=== PATIENT | female | born 1985 | race Caucasian/White ===

== ENCOUNTER 2016-11-17 19:33 | Outpatient (CLI) | payer OTHER ==
[~2016-11-17] VITALS: Ht 165.1 cm; Wt 98.6 kg
[~2016-11-17 19:33] MED LIST: DIPH25CA6 PO; NPH10OT RIGHT EAR; PREN1TAB49 PO; PREN1TAB67 PO
[2016-11-17 19:49] VITALS: Ht 165.1 cm; Wt 98.6 kg
[2016-11-17 19:50] VITALS: BP 121/73; PULSE 105; RESP 18
[2016-11-17] MEDS ORDERED: ACETAMINOPHEN 500 MG TAB PO STA (20:06)
[2016-11-17] MEDS ORDERED: LACTATED RINGER'S 1,000 ML IV SCH (20:07)
[2016-11-17 20:34] LABS: ADD SCAN DIFF NO
[2016-11-17 20:37] LABS: ABNORMAL IP MESSAGE 1; BASOPHILS % 0.1 % (0.0-2.0); EOSINOPHILS % 0.4 % (0.0-7.0); HEMATOCRIT 32.7 % (37.0-47.0); HEMOGLOBIN 11.4 g/dl (12.0-16.0); LYMPHOCYTES # 0.6 10^3/ul (0.8-2.9); LYMPHOCYTES % 8.8 % (15.0-51.0); MEAN CORPUSCULAR HEMOGLOBIN 31.3 pg (29.0-33.0); MEAN CORPUSCULAR HGB CONC 34.9 g/dl (32.0-37.0); MEAN CORPUSCULAR VOLUME 89.8 fl (82.0-101.0); MEAN PLATELET VOLUME 10.9 fl (7.4-10.4); MONOCYTE # 0.5 10^3/ul (0.3-0.9); MONOCYTES % 7.4 % (0.0-11.0); NEUTROPHIL # 5.6 10^3/ul (1.6-7.5); NEUTROPHILS % 82.9 % (39.0-77.0); PLATELET COUNT 244 10^3/UL (140-415); RED BLOOD COUNT 3.64 10^6/ul (4.20-5.40); RED CELL DISTRIBUTION WIDTH 13.6 % (11.5-14.5); WHITE BLOOD COUNT 6.7 10^3/ul (4.8-10.8)
[2016-11-17 20:47] LABS: ALBUMIN 3.2 g/dl (3.3-4.9)
[2016-11-17 20:48] LABS: ADD UMIC YES; POTASSIUM 3.4 mmol/L (3.5-5.1); URINE BILIRUBIN (Dip) NEGATIVE (NEGATIVE); URINE BLOOD (Dip) NEGATIVE (NEGATIVE); URINE COLOR LT. YELLOW (YELLOW); URINE GLUCOSE (Dip) NEGATIVE (NEGATIVE); URINE KETONES (Dip) TRACE (NEGATIVE); URINE LEUKOCYTE ESTERASE (Dip) TRACE (NEGATIVE); URINE NITRITE (Dip) NEGATIVE (NEGATIVE); URINE TOTAL PROTEIN (Dip) NEGATIVE (NEGATIVE); URINE UROBILINOGEN (Dip) 0.2 E.U./dL (0.1-1.0)
[2016-11-17 20:50] LABS: BILIRUBIN,INDIRECT 0.1 mg/dl (0-1.1); BILIRUBIN,TOTAL 0.1 mg/dl (0.2-1.3); CREATININE 0.52 mg/dl (0.44-1.00); TOTAL PROTEIN 6.4 g/dl (6.1-8.1)
[2016-11-17 20:51] LABS: CALCIUM 8.2 mg/dl (8.4-10.2)
[2016-11-17 20:57] LABS: SQUAMOUS EPITHELIAL CELL,UR FEW; TRANSITIONAL EPI CELLS,URINE OCCASIONAL
--- NOTE | 2016-11-17 22:58 | QN ---
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 with an IUP @ 23w 6d and c/o a fever, body aches, scratchy throat , and mucousy nasal d/c. No vaginal bleeding. no Leaking. No UC's or pelvic pressure. PMHx: none. PSHx: C/S x 1. POBHx: x 2. C/S x 1. All: sulfa-rash, throat swelling. BP 121/73. T= 100.0. O2 sat 98%. No UC's noted. heart tones in the 160's. WBC 6.7. Hgb 11.4. CMP wnl. U/A negative. After IV hydration and Tylenol 100 mg the pt reports feeling much better and her back pain has improved. A: IUP at 23w 6d. URI. P: D/C IV and D/C home. Gave pt a note to stay home from work tomorrow. JAIME PRITCHETT MD Nov 17, 2016 22:58
--- NOTE | 2016-11-18 00:05 | TRIAGE ---
OB Triage Datetime Report Generated by CPN: 11/18/2016 00:05 Datetime: 11/17/2016 22:00 Stage of : OB Triage Temperature Route: Oral Labor Evaluation Frequency: 0 Monitor Mode: External Pattern: Normal: <= 5 Contractions in 10 Minutes Resting Tone [place]: Relaxed Datetime: 11/17/2016 21:00 Stage of : OB Triage Labor Evaluation Frequency: IRREGULAR Monitor Mode: External Duration (sec)2399: 40 Quality: Mild Pattern: Normal: <= 5 Contractions in 10 Minutes Resting Tone [place]: Relaxed Datetime: 11/17/2016 20:46 EGA: 23.6 Datetime: 11/17/2016 20:00 Labor Evaluation Frequency: IRREGULAR Monitor Mode: External Duration (sec)2399: 30-40 Quality: Mild Pattern: Normal: <= 5 Contractions in 10 Minutes Resting Tone [place]: Relaxed Vaginal Exam Dilatation (cms): 0.0 Effacement (%): 0 Station: -3 Exam By: Haily JOHNSON RN Vaginal Bleeding: None Cervix, Consistency: Firm Cervix, Position: Posterior Datetime: 11/17/2016 19:27 Stage of : OB Triage Heart Rate FHR Baseline Rate: 165 Monitor Mode: External US Datetime: 11/17/2016 19:20 Stage of : OB Triage Assessment Type: Triage Time of Arrival: 11/17/2016 19:16 Arrived By: Ambulatory Arrived From: Home Chief Complaint: FEVER SINCE THIS AM/ BODY ACHES, Movement: Present Rupture of Membranes: Denies Vaginal Bleeding: None Recent Sexual Intercouse: Denies Abdominal Trauma: Not Applicable Patient Complaints: None Additional Patient Complaints: PREVIOUS VAGINAL DELIVERIES X2 / C/S X 1/ HX OF ASTHMA HAS NOT USED INHALER X1 YR (Annotations: Data stored by CPN on behalf of user) Time Provider Notified: 11/17/2016 20:10 Provider Notified: SHREYAS Initial Plan: CALL KAYLA SMITH Maternal Assessment Level of Consciousness: Fully Conscious DTR's/Clonus: DTRs 2+; No Clonus Headache: Denies Blurred Vision: No Respiratory Effort: Unlabored; Regular Rhythm; Equal Expansion Breath Sounds, Left: Clear and Equal Breath Sounds, Right: Clear and Equal Nausea/Vomiting: Denies RUQ Epigastric Pain: Denies Lower Extremities Edema: None Degree: None Upper Extremities Edema: None Degree: None Facial Edema: None Temperature Route: Oral Fall Risk Assessment History of Falling: (0) No Secondary Diagnosis: (0) No Ambulatory Aid: (0) Bedrest/Nurse Assist IV Therapy: (0) No Gait: (0) Normal/Bedrest/Immobile Mental Status: (0) Oriented to Own Ability Fall Score: 0 Fall Risk Score Definition: No Risk: No action required Monitor Mode: External Monitor Mode: External US Pain Assessment Pain Scale: 3 Pain Presence: Intermittent Pain Type: Ache
== END 2016-11-17 22:45 | disposition home or self-care (01) ==
LOC: OBT 19:33 → L-D 19:33 → OBT 22:45
PROVIDERS: ATTEND Obstetrics & Gynecology
DX: O60.02 Preterm labor without delivery, second trimester (principal); Z3A.23 23 weeks gestation of pregnancy
CPT/HCPCS: 80053; 81001; 81003; 85025; 87086; J7120; Z7610; 36415; 96360; 96361; G0463

== ENCOUNTER 2016-12-25 21:20 | Outpatient (CLI) | payer OTHER ==
[~2016-12-25] VITALS: Ht 165.1 cm; Wt 100.6 kg
[2016-12-25 21:39] VITALS: Ht 165.1 cm; Wt 100.6 kg
[2016-12-25 21:40] VITALS: BP 120/65; PULSE 81; RESP 18
[2016-12-25] MEDS ORDERED: LACTATED RINGER'S 1,000 ML IV SCH (22:15)
[2016-12-25] MEDS ORDERED: TERBUTALINE 1 MG/ML INJ SC ONE (22:30)
[2016-12-25] MEDS ORDERED: POTASSIUM CHLORIDE 30 MEQ in SOD CHLORIDE 0.45% 1,000 ML IV SCH (22:30)
[2016-12-25 23:08] LABS: ADD SCAN DIFF NO
[2016-12-25 23:13] LABS: BASOPHILS % 0.3 % (0.0-2.0); EOSINOPHILS # 0.2 10^3/ul (0.0-0.5); EOSINOPHILS % 1.8 % (0.0-7.0); HEMATOCRIT 30.5 % (37.0-47.0); HEMOGLOBIN 10.3 g/dl (12.0-16.0); LYMPHOCYTES # 3.3 10^3/ul (0.8-2.9); LYMPHOCYTES % 26.7 % (15.0-51.0); MEAN CORPUSCULAR HEMOGLOBIN 30.9 pg (29.0-33.0); MEAN CORPUSCULAR HGB CONC 33.8 g/dl (32.0-37.0); MEAN CORPUSCULAR VOLUME 91.6 fl (82.0-101.0); MEAN PLATELET VOLUME 11.3 fl (7.4-10.4); MONOCYTE # 0.6 10^3/ul (0.3-0.9); MONOCYTES % 5.2 % (0.0-11.0); NEUTROPHILS % 65.3 % (39.0-77.0); PLATELET COUNT 249 10^3/UL (140-415); RED BLOOD COUNT 3.33 10^6/ul (4.20-5.40); RED CELL DISTRIBUTION WIDTH 14.3 % (11.5-14.5); WHITE BLOOD COUNT 12.2 10^3/ul (4.8-10.8)
[2016-12-25 23:21] LABS: ADD UMIC YES; UR BILIRUBIN (Dip) NEGATIVE (NEGATIVE); UR BLOOD (Dip) NEGATIVE (NEGATIVE); UR COLOR LT. YELLOW (YELLOW); UR GLUCOSE (Dip) NEGATIVE (NEGATIVE); UR KETONES (Dip) NEGATIVE (NEGATIVE); UR LEUKOCYTE ESTERASE (Dip) 3+ (NEGATIVE); UR NITRITE (Dip) NEGATIVE (NEGATIVE); UR TOTAL PROTEIN (Dip) NEGATIVE (NEGATIVE); UR UROBILINOGEN (Dip) 0.2 E.U./dL (0.1-1.0)
[2016-12-25 23:22] LABS: UR CLARITY HAZY (CLEAR)
[2016-12-25 23:45] LABS: UR BACTERIA MODERATE; UR SQUAMOUS EPITHELIAL CELL MANY; URINE RBCS 0-2 /HPF (0)
--- NOTE | 2016-12-26 | RADRPT ---
PROCEDURE: Obstetrical ultrasound greater than 14 weeks CLINICAL INDICATION: Abdominal pain TECHNIQUE: Real time sonographic imaging of the gravid uterus is performed transabdominally and mu ltiple static razo scale and Doppler images are submitted for review as are measurements. The image s are reviewed on the PACS. COMPARISON: No relevant exams are available FINDINGS: The cervical os is closed with a normal cervical length of 3.44 cm. There is a single living intrauterine gestation in breech presentation. The heart beat is est imated at 144 bpm. The measurements are as follows: BPD:7.08 cm HC:26.16 cm AC:24.65 cm FL:5.44 cm Estimated gestational age is 28 weeks 4 days. The estimated date of delivery is 03/15/2017. The estimated weight [id number] grams. Placenta is posterior and grade 1. There is no evidence of placenta previa or abruption. The amniotic fluid index is qualitatively normal RPTAT:HJJR IMPRESSION: 1. Single viable intrauterine gestation in breech presentation estimated at 28 weeks 4 days with the estimated date of delivery 03/15/2017. 2. Posterior grade 1 placenta without placenta previa or abruption. 3. Normal cervical length of 3.4 cm. Physician Luiz Date Time Electronically viewed and signed by Physician Luiz on 12/26/2016 00:00 /
[2016-12-26 00:50] LABS: ADD UMIC NO; UR BILIRUBIN (Dip) NEGATIVE (NEGATIVE); UR BLOOD (Dip) NEGATIVE (NEGATIVE); UR CLARITY CLEAR (CLEAR); UR COLOR LT. YELLOW (YELLOW); UR GLUCOSE (Dip) NEGATIVE (NEGATIVE); UR KETONES (Dip) 15 (NEGATIVE); UR LEUKOCYTE ESTERASE (Dip) NEGATIVE (NEGATIVE); UR NITRITE (Dip) NEGATIVE (NEGATIVE); UR TOTAL PROTEIN (Dip) NEGATIVE (NEGATIVE); UR UROBILINOGEN (Dip) 0.2 E.U./dL (0.1-1.0)
--- NOTE | 2016-12-26 01:02 | HP ---
Date/Time of Note Date/Time of Note DATE: 12/26/16 TIME: 00:55 OB - History Hx of Present Free Text/Dictation OB Triage Pt is a 31yo at 28+4 presenting with c/o painful contractions and abdominal pain starting at 1500. Pt reports normal FM, denies LOF or VB. Pt denies dysuria as well. Pt has hx of FT deliveries x4, although had contractions and was hospitalized for PTL with her second . PROCEDURE: Obstetrical ultrasound greater than 14 weeks CLINICAL INDICATION: Abdominal pain TECHNIQUE: Real time sonographic imaging of the gravid uterus is performed transabdominally and multiple static razo scale and Doppler images are submitted for review as are measurements. The images are reviewed on the PACS. COMPARISON: No relevant exams are available FINDINGS: The cervical os is closed with a normal cervical length of 3.44 cm. There is a single living intrauterine gestation in breech presentation. The heart beat is estimated at 144 bpm. The measurements are as follows: BPD: 7.08 cm HC: 26.16 cm AC: 24.65 cm FL: 5.44 cm Estimated gestational age is 28 weeks 4 days. The estimated date of delivery is 03/15/2017. The estimated weight [id number] grams. Placenta is posterior and grade 1. There is no evidence of placenta previa or abruption. The amniotic fluid index is qualitatively normal RPTAT:HJJR IMPRESSION: 1. Single viable intrauterine gestation in breech presentation estimated at 28 weeks 4 days with the estimated date of delivery 03/15/2017. 2. Posterior grade 1 placenta without placenta previa or abruption. 3. Normal cervical length of 3.4 cm. Estimated Due Date: Mar 15, 2017 : 6 Para: 4 Care: Good Care OB Admission Exam Vital Signs Vital Signs Vital Signs Date Time Temp Pulse Resp B/P Pulse Ox O2 Delivery O2 Flow Rate FiO2 12/25/16 21:40 98.3 81 18 120/65 Room Air NST: Reactive [place]: 6 UCs in first 50 min of triage visit. Following 2hrs acontractile Last 72 hours Lab Results CBC & BMP 12/25/16 20:46 OB Assessment/Plan Other Assessment: Contractions w/o evidence of PTL Reassuring Status Other plan: Pt appropriate for d/c home given low likelihood of PTL in the setting of resolved UCs w/IV hydration even before Terbutaline was administered (given per primary OB orders), TVCL >3cm and negative FFN. Pt given strict return precautions for PTL, PPROM and decreased FM. Encourage f/up as scheduled with primary OB in 2wks, sooner in OB triage as needed. Questions answered to patient's satisfaction. AMANDEEP ROSENBAUM MD Dec 26, 2016 01:02
--- NOTE | 2016-12-26 01:50 | TRIAGE ---
OB Triage Datetime Report Generated by CPN: 12/26/2016 01:49 Datetime: 12/26/2016 01:00 Stage of : OB Triage Datetime: 12/26/2016 00:55 Stage of : OB Triage Datetime: 12/26/2016 00:30 Labor Evaluation Frequency: 0 Monitor Mode: External Heart Rate FHR Baseline Rate: 145 Monitor Mode: External US FHR Baseline Changes: No Baseline Change Variability: Moderate 6-25 bpm Accelerations: 15X15 Decelerations: None Category: Category I Datetime: 12/25/2016 23:30 Labor Evaluation Frequency: 1/HR Monitor Mode: External Duration (sec)2399: 70 Quality: Mild Pattern: Normal: <= 5 Contractions in 10 Minutes Resting Tone [place]: Relaxed Heart Rate FHR Baseline Rate: 135 FHR Baseline Changes: No Baseline Change Variability: Moderate 6-25 bpm Accelerations: 15X15 Decelerations: None Category: Category I Datetime: 12/25/2016 22:49 Vaginal Exam Dilatation (cms): 2.0 Effacement (%): 30 Station: -2 Exam By: DIONISIO BURGOS Vaginal Bleeding: None Cervix, Consistency: Firm Cervix, Position: Posterior Datetime: 12/25/2016 22:43 Stage of : OB Triage Datetime: 12/25/2016 22:30 Labor Evaluation Frequency: 6-7 Monitor Mode: External Duration (sec)2399: 60 Quality: Mild Pattern: Normal: <= 5 Contractions in 10 Minutes Resting Tone [place]: Relaxed Heart Rate FHR Baseline Rate: 135 Monitor Mode: External US FHR Baseline Changes: No Baseline Change Variability: Moderate 6-25 bpm Accelerations: 15X15 Decelerations: None Category: Category I Datetime: 12/25/2016 21:34 Stage of : OB Triage Assessment Type: Triage Time of Arrival: 12/26/2016 21:15 EGA: 29.3 Arrived By: Wheelchair Arrived From: Home Chief Complaint: CRAMPS, PRESSURE Movement: Present Contractions: Irregular Time Contractions Began: 12/25/2016 15:00 Rupture of Membranes: Denies Vaginal Bleeding: None Vaginal Discharge: Denies Recent Sexual Intercouse: Denies Abdominal Trauma: Not Applicable Patient Complaints: None Time Provider Notified: 12/26/2016 22:11 Provider Notified: ABUSLEME Initial Plan: CALL KAYLA SMITH Maternal Assessment Level of Consciousness: Fully Conscious DTR's/Clonus: DTRs 2+; No Clonus Headache: Denies Blurred Vision: No Respiratory Effort: Unlabored; Regular Rhythm; Equal Expansion Breath Sounds, Left: Clear and Equal Breath Sounds, Right: Clear and Equal Nausea/Vomiting: Denies RUQ Epigastric Pain: Denies Lower Extremities Edema: Bilateral Lower Extremities Degree: 1+ Upper Extremities Edema: None Degree: None Facial Edema: None Temperature Route: Oral Fall Risk Assessment History of Falling: (0) No Secondary Diagnosis: (0) No Ambulatory Aid: (0) Bedrest/Nurse Assist IV Therapy: (0) No Gait: (0) Normal/Bedrest/Immobile Mental Status: (0) Oriented to Own Ability Fall Score: 0 Fall Risk Score Definition: No Risk: No action required Monitor Mode: External Monitor Mode: External US Pain Assessment Pain Scale: 4 Pain Presence: Intermittent Pain Type: Contraction Pain Location: Abdomen; Back Datetime: 11/17/2016 20:46 EGA: 23.6 Datetime: 11/17/2016 19:20 Fall Score: 0 Fall Risk Score Definition: No Risk: No action required
[2016-12-26] MEDS ORDERED: LACTATED RINGER'S 1,000 ML IV SCH (22:15)
== END 2016-12-26 01:10 | disposition home or self-care (01) ==
LOC: OBT 21:20 → L-D 21:20 → OBT 12-26 01:10
PROVIDERS: ATTEND Obstetrics & Gynecology
DX: O62.9 Abnormality of forces of labor, unspecified (principal); O26.893 Other specified pregnancy related conditions, third trimester; R10.9 Unspecified abdominal pain; Z3A.28 28 weeks gestation of pregnancy
CPT/HCPCS: 36415; 76815; 76817; 81001; 81003; 82731; 85025; 87086; 96360; 96361; J3105; J7120; Z7500; A4310; G0463

== ENCOUNTER 2017-03-01 22:38 | Outpatient (CLI) | payer OTHER ==
[~2017-03-01] VITALS: Ht 165.1 cm; Wt 103.8 kg
[~2017-03-01 22:38] MED LIST changes: -DIPH25CA6 PO; -NPH10OT RIGHT EAR; -PREN1TAB67 PO
[2017-03-01 23:27] VITALS: Ht 165.1 cm; Wt 103.8 kg
[2017-03-01 23:29] VITALS: BP 118/73; PULSE 84; RESP 18
--- NOTE | 2017-03-02 02:17 | PN ---
Triage Information Date/Time Weeks of Gestation 38+wks GA : 6 Para: 3 Hypertention: none Objective Vital Signs Date Time Temp Pulse Resp B/P Pulse Ox O2 Delivery O2 Flow Rate FiO2 03/01/17 23:29 98.3 84 18 118/73 Room Air Heart Rate: 140's Contractions: None Exam Cxclosed NST reassuring [place] No CTXs Assessment/Plan Discharged with precautions Return to hospital in 2 days patient's questions answered JOSE ANTONIO KIRK M.D. Mar 02, 2017 02:17
--- NOTE | 2017-03-02 03:10 | TRIAGE ---
OB Triage Datetime Report Generated by CPN: 03/02/2017 03:09 Datetime: 03/02/2017 01:40 Labor Evaluation Frequency: 2-5 Monitor Mode: External Duration (sec)2399: 80 Quality: Mild Pattern: Normal: <= 5 Contractions in 10 Minutes Resting Tone [place]: Relaxed Heart Rate FHR Baseline Rate: 125 Monitor Mode: External US FHR Baseline Changes: No Baseline Change Variability: Moderate 6-25 bpm Accelerations: 15X15 Decelerations: None Category: Category I Datetime: 03/02/2017 00:47 Labor Evaluation Frequency: 0 Monitor Mode: External Quality: Mild Pattern: Normal: <= 5 Contractions in 10 Minutes Resting Tone [place]: Relaxed Heart Rate FHR Baseline Rate: 135 Monitor Mode: External US FHR Baseline Changes: No Baseline Change Variability: Moderate 6-25 bpm Accelerations: 15X15 Decelerations: None Category: Category I Datetime: 03/02/2017 00:00 Labor Evaluation Frequency: 2/HR Monitor Mode: External Heart Rate FHR Baseline Rate: 135 Monitor Mode: External US FHR Baseline Changes: No Baseline Change Variability: Moderate 6-25 bpm Accelerations: 15X15 Decelerations: None Category: Category I Datetime: 03/01/2017 23:39 Vaginal Exam Membrane Status: Intact Datetime: 03/01/2017 23:22 Stage of : OB Triage Assessment Type: Triage Time of Arrival: 03/01/2017 22:36 EGA: 38.0 Arrived By: Wheelchair Arrived From: Home Chief Complaint: NST Movement: Present Contractions: Denies/Absent Rupture of Membranes: Denies Vaginal Bleeding: None Vaginal Discharge: Denies Recent Sexual Intercouse: Denies Abdominal Trauma: Not Applicable Patient Complaints: None (Annotations: Data stored by CPN on behalf of user) Time Provider Notified: 03/01/2017 22:40 Provider Notified: DR KIRK Initial Plan: CALL MD [facility] Maternal Assessment Level of Consciousness: Fully Conscious DTR's/Clonus: DTRs 2+; No Clonus Headache: Denies Blurred Vision: No Respiratory Effort: Unlabored; Regular Rhythm; Equal Expansion Breath Sounds, Left: Clear and Equal Breath Sounds, Right: Clear and Equal Nausea/Vomiting: Denies RUQ Epigastric Pain: Denies Lower Extremities Edema: Bilateral Lower Extremities Degree: 1+ Upper Extremities Edema: None Degree: None Facial Edema: None Temperature Route: Oral Fall Risk Assessment History of Falling: (0) No Secondary Diagnosis: (0) No Ambulatory Aid: (0) Bedrest/Nurse Assist IV Therapy: (0) No Gait: (0) Normal/Bedrest/Immobile Mental Status: (0) Oriented to Own Ability Fall Score: 0 Fall Risk Score Definition: No Risk: No action required Monitor Mode: External Monitor Mode: External US Pain Assessment Pain Scale: 0 Datetime: 12/25/2016 21:34 EGA: 28.5 Fall Score: 0 Fall Risk Score Definition: No Risk: No action required Datetime: 11/17/2016 20:46 EGA: 23.1 Datetime: 11/17/2016 19:20 Fall Score: 0 Fall Risk Score Definition: No Risk: No action required
--- NOTE | 2017-03-02 09:10 | RADRPT ---
PROCEDURE: OB ultrasound for biophysical profile CLINICAL INDICATION: Pain. TECHNIQUE: Multiple sonographic images of the gravid uterus performed. The images were reviewed on a PACS workstation. COMPARISON: 01/15/2017 FINDINGS: A single live intrauterine is identified with heart rate of 131 bpm. Fet us is in a cephalic presentation. Placenta is located posteriorly. Biophysical profile: breathing movement = 2/2 tone = 2/2 motion = 2/2 TONY = 2/2 TONY = 21.1 cm. IMPRESSION: 1. Single live intrauterine gestation. 2. Biophysical profile = 8/8. 3. TONY = 21.1 cm, slightly increased from 17.6 cm on 01/15/2017. RPTAT: HMVK .Mj Castillo MD, MD Date Time Electronically viewed and signed by .Mj Castillo MD, on 03/02/2017 00:28 .K/
== END 2017-03-02 02:08 | disposition home or self-care (01) ==
LOC: OBT 22:38 → L-D 22:38 → OBT 03-02 02:08
PROVIDERS: ATTEND Obstetrics & Gynecology
DX: O26.893 Other specified pregnancy related conditions, third trimester (principal); R10.2 Pelvic and perineal pain; Z3A.38 38 weeks gestation of pregnancy
CPT/HCPCS: 76818

== ENCOUNTER 2017-03-10 08:45 | Inpatient (IN) | payer OTHER ==
[~2017-03-10] VITALS: Ht 165.1 cm; Wt 105.5 kg
[~2017-03-10 08:45] MED LIST changes: +EPHEDrine SULFATE 50 MG/5 ML SYG ONE; +OXYTOCIN 30 UNITS/LR 500 ML BAG IV ONE
[2017-03-10] MEDS ORDERED: METHYLERGONOVINE 0.2 MG INJ IM PRN ×2 (09:00→11:00)
[2017-03-10] MEDS ORDERED: MISOPROSTOL 200 MCG TAB PR PRN ×2 (09:00→11:00)
[2017-03-10] MEDS ORDERED: CEFAZOLIN 2 GM/50 ML (PMX) 50 ML IV SCH (09:00)
[2017-03-10] MEDS ORDERED: OXYTOCIN 30 UNITS/LR 500 ML IV PRN ×2 (09:00→11:00)
[2017-03-10] MEDS ORDERED: OXYTOCIN 30 UNITS/LR 500 ML IV SCH (09:00)
[2017-03-10] MEDS ORDERED: CARBOPROST 250 MCG INJ IM PRN ×2 (09:00→11:00)
[2017-03-10 09:16] VITALS: Ht 165.1 cm; Wt 105.5 kg
[2017-03-10] MEDS: LACTATED RINGER'S 1,000 ML IV SCH ×4 (09:31→22:12)
[2017-03-10 09:51] LABS: ADD SCAN DIFF NO
[2017-03-10 09:56] LABS: BASOPHILS % 0.3 % (0.0-2.0); EOSINOPHILS # 0.1 10^3/ul (0.0-0.5); EOSINOPHILS % 0.7 % (0.0-7.0); HEMATOCRIT 32.6 % (37.0-47.0); HEMOGLOBIN 10.6 g/dl (12.0-16.0); LYMPHOCYTES # 1.7 10^3/ul (0.8-2.9); LYMPHOCYTES % 19.6 % (15.0-51.0); MEAN CORPUSCULAR HEMOGLOBIN 28.6 pg (29.0-33.0); MEAN CORPUSCULAR HGB CONC 32.5 g/dl (32.0-37.0); MEAN CORPUSCULAR VOLUME 87.9 fl (82.0-101.0); MEAN PLATELET VOLUME 10.9 fl (7.4-10.4); MONOCYTE # 0.4 10^3/ul (0.3-0.9); MONOCYTES % 4.8 % (0.0-11.0); NEUTROPHIL # 6.4 10^3/ul (1.6-7.5); PLATELET COUNT 275 10^3/UL (140-415); RED BLOOD COUNT 3.71 10^6/ul (4.20-5.40); RED CELL DISTRIBUTION WIDTH 14.3 % (11.5-14.5); WHITE BLOOD COUNT 8.7 10^3/ul (4.8-10.8)
[2017-03-10 10:13] LABS: ALBUMIN 3.7 g/dl (3.3-4.9); ALBUMIN/GLOBULIN RATIO 1.15; BILIRUBIN,INDIRECT 0.2 mg/dl (0-1.1); BILIRUBIN,TOTAL 0.2 mg/dl (0.2-1.3); CALCIUM 8.2 mg/dl (8.4-10.2); CREATININE 0.7 mg/dl (0.44-1.00); INR 0.94; POTASSIUM 3.6 mmol/L (3.5-5.1); PROTIME 12.6 Sec (12.2-14.2); TOTAL PROTEIN 6.9 g/dl (6.1-8.1); URIC ACID 4.1 mg/dl (3.1-7.9)
[2017-03-10] MEDS ORDERED: CITRIC ACID/NA CITRATE 30 ML CUP ONE (10:38)
[2017-03-10] MEDS ORDERED: ONDANSETRON 4 MG INJ ONE ×2 (10:38→11:21)
[2017-03-10] MEDS ORDERED: morphine SULFATE/PF (10 MG/10 ML) INJ ONE (10:51)
[2017-03-10] MEDS ORDERED: PHENYLephrine (100 MCG/ML) 5ML SYG ONE (10:52)
--- NOTE | 2017-03-10 10:54 | HP ---
Date/Time of Note Date/Time of Note DATE: 03/10/17 TIME: 10:48 OB - History Hx of Present Free Text/Dictation This patient is admitted for repeat and tubal ligation her past history is noncontributory she had 2 previous vaginal deliveries and one previous sections and she is requesting a tubal ligation and a repeat C -section Last Menstrual Period: Jun 20, 2017 Estimated Due Date: Mar 15, 2017 : 6 Para: 3 Therapeutic : 2 Care: Good Care Ultrasounds: Normal mid trimester US Obstetrical Complications: None Medical Complications: None Past Family/Social History * Past Medical, Surgical, Family and Obstetric Histories reviewed from chart. Blood Type: A+ Rubella: immune RPR/VDRL: Negative GBS Status: Negative HBsAG: Negative OB Admission Exam Physical Exam HEENT: WNL Heart: Rhythm Normal Lungs: Clear, Equal Abdomen: WNL Extremities: Normal Reflexes: Normal Cervical Dilatation: None Effacement: 25% Station: Ballotable Membranes: Intact Heart Rate: 120's Varibility: Marked Contractions on Admission: None Last 72 hours Lab Results CBC & BMP 03/10/17 09:40 Liver Function Test 03/10/17 09:40 Alanine Aminotransferase (ALT/SGPT) 20 Albumin 3.7 Alkaline Phosphatase 114 Aspartate Amino Transf (AST/SGOT) 13 L Direct Bilirubin 0.00 Total Protein 6.9 TEA DOE MD Mar 10, 2017 10:54
[2017-03-10] MEDS ORDERED: LANOLIN 7 GM TUBE TOP PRN (11:00)
[2017-03-10] MEDS ORDERED: NA PHOSPHATE/BIPHOS 133 ML ENEMA PR PRN (11:00)
[2017-03-10] MEDS ORDERED: METHYLERGONOVINE 0.2 MG TAB PO PRN (11:00)
[2017-03-10] MEDS ORDERED: ACETAMINOPHEN/CODEINE #3 TAB PO PRN (11:00)
[2017-03-10] MEDS: CEFAZOLIN 2 GM/50 ML (PMX) 50 ML IV SCH ×2 (11:05→18:25)
[2017-03-10 11:27] LABS: ADD UMIC YES; UR ASCORBIC ACID NEGATIVE (NEGATIVE); UR BACTERIA FEW /HPF (NONE SEEN); UR BILIRUBIN (Dip) NEGATIVE (NEGATIVE); UR BLOOD (Dip) NEGATIVE (NEGATIVE); UR CLARITY CLOUDY (CLEAR); UR COLOR YELLOW (YELLOW); UR GLUCOSE (Dip) NEGATIVE (NEGATIVE); UR KETONES (Dip) TRACE mg/dL (NEGATIVE); UR LEUKOCYTE ESTERASE (Dip) 3+ Leu/ul (NEGATIVE); UR MUCUS MANY /HPF (NONE SEEN); UR NITRITE (Dip) NEGATIVE (NEGATIVE); UR RBC 6 /HPF (0-5); UR SPECIFIC GRAVITY (Dip) 1.021 (1.003-1.030); UR SQUAMOUS EPITHELIAL CELL MANY /HPF (FEW); UR TOTAL PROTEIN (Dip) 1+ mg/dl (NEGATIVE); UR UROBILINOGEN (Dip) NEGATIVE (NEGATIVE)
[2017-03-10] MEDS ORDERED: DIPHENHYDRAMINE 50 MG INJ IV PRN ×2 (11:30)
[2017-03-10] MEDS ORDERED: ONDANSETRON 4 MG INJ IV PRN ×2 (11:30)
[2017-03-10] MEDS ORDERED: NALOXONE (0.4 MG/ML) INJ IV PRN (11:30)
[2017-03-10] MEDS ORDERED: PROCHLORPERAZINE 10 MG INJ IV PRN (11:30)
[2017-03-10] MEDS ORDERED: FENTAnyl 50 MCG/ML VIAL IV PRN ×2 (11:30)
[2017-03-10] MEDS ORDERED: MEPERIDINE 25 MG INJ IV PRN (11:30)
[2017-03-10] MEDS ORDERED: HYDROmorphONE 1 MG/ML SYG IV PRN (11:30)
[2017-03-10] MEDS ORDERED: METOCLOPRAMIDE 10 MG INJ IV PRN (11:30)
[2017-03-10] MEDS ORDERED: ZOLPIDEM 5 MG TAB PO PRN (11:30)
[2017-03-10] MEDS ORDERED: HYDROmorphONE (0.2 MG/ML) 10ML SYG IV PRN ×3 (11:30)
--- NOTE | 2017-03-10 12:33 | OPR ---
Date/Time of Note Date/Time of Note DATE: 03/10/17 TIME: 12:18 Operative Report Free Text/Dictation Procedure: The patient was placed in the supine position and the abdomen was prepped and draped. and a Roque catheter had been placed in the bladder, a small incision was placed on the previous old scar for about 10 cm and the abdomen was opened in layers without difficulties, the abdominal cavity was reached, the lower uterine segment was identified and the bladder flap was made, the uterus was opened in the midline with the scalpel and the amniotic fluid was clear, the uterus was opened laterally on either side for about 3 inches, the baby's head was large and with the help of the vacuum the baby was delivered with 9, the cord had been clamped and cut and the baby was handed over to the alarm mechanism adjuster team, the cord blood was obtained and the placenta was removed, the uterus was swabbed out and closed in 2 layers using #1 Monocryl continuous suture and 0-chromic MH stitches were used for reinforcement for small bleeding and the uterus was found to be in good conditions, both tubes and ovaries were heathy with a hematosalpinx on the right side. 2 0 sutures with 2-0 Vicryl were placed on the right and left tube under the mesosalpinx clamping the tube In the entire length, the base of the tube was removed in both side and the mesosalpinx was tied with 2-0 Vicryl sutures with double ties and good hemostasis was observed the procedure was finished by assessing the whole area and finding that the hemostasis was good and a piece of Interceed was placed on the area of the incisional area of the uterus and the abdomen was closed with a 2-0 Vicryl suture for peritoneum 0 PDS loop suture for the fascia 2-0 Vicryl for the subcutaneous tissue 3-0 Monocryl subcuticular to the skin Dermabond and Steri-Strips. The patient tolerated the procedure well and left the OR awake and stable, sponge counts and instruments counts were correct intravenous antibiotics were given for prophylaxis. Procedure Date: Mar 10, 2017 Preoperative Diagnosis TERM PREVIOUS C/S AND MULTIPARITY Postoperative Diagnosis SAME Operation Performed REPEAT C/S AND BILATERAL SALPINGECTOMY Surgeon: TEA DOE MD compounding assistant: RODO GRAVES MD Anesthesiologist: JOHN MCINTYRE Estimated Blood Loss: other Complications: None Complications NONE Pt Condition Post Procedure: stable Disposition: PACU TEA DOE MD Mar 10, 2017 12:32
[2017-03-10] MEDS: OXYTOCIN 30 UNITS/LR 500 ML IV SCH ×2 (12:50→17:36)
[2017-03-10 14:30] VITALS: BP 109/51; PULSE 65; RESP 18
[2017-03-10 14:45] VITALS: BP 105/52; PULSE 73; RESP 18
[2017-03-10 15:00] VITALS: BP 107/56; PULSE 73; RESP 18
[2017-03-10 16:00] VITALS: BP 104/49; PULSE 70; RESP 18
[2017-03-10] MEDS: HYDROmorphONE 1 MG/ML SYG IV PRN ×2 (17:33→22:13)
[2017-03-10 19:45] VITALS: BP 113/64; PULSE 74; RESP 18
[2017-03-10] MEDS: SENNA/DOCUSATE NA (8.6MG/50MG) TAB PO SCH (22:03)
[2017-03-11 00:03] VITALS: BP 100/57; PULSE 80; RESP 18
[2017-03-11] MEDS: CEFAZOLIN 2 GM/50 ML (PMX) 50 ML IV SCH (02:35)
[2017-03-11 04:00] VITALS: BP 99/53; PULSE 72; RESP 18
[2017-03-11] MEDS: HYDROmorphONE 1 MG/ML SYG IV PRN ×2 (05:39→08:32)
[2017-03-11] MEDS: LACTATED RINGER'S 1,000 ML IV SCH (05:50)
[2017-03-11 07:38] VITALS: BP 91/54; PULSE 80; RESP 18
[2017-03-11] MEDS: SENNA/DOCUSATE NA (8.6MG/50MG) TAB PO SCH ×2 (08:31→20:46)
[2017-03-11 08:39] LABS: ADD SCAN DIFF NO
[2017-03-11 08:42] LABS: BASOPHILS % 0.2 % (0.0-2.0); EOSINOPHILS # 0.1 10^3/ul (0.0-0.5); EOSINOPHILS % 1.3 % (0.0-7.0); HEMATOCRIT 32.3 % (37.0-47.0); HEMOGLOBIN 10.5 g/dl (12.0-16.0); LYMPHOCYTES # 1.5 10^3/ul (0.8-2.9); LYMPHOCYTES % 15.9 % (15.0-51.0); MEAN CORPUSCULAR HEMOGLOBIN 28.9 pg (29.0-33.0); MEAN CORPUSCULAR HGB CONC 32.5 g/dl (32.0-37.0); MONOCYTE # 0.4 10^3/ul (0.3-0.9); MONOCYTES % 4.6 % (0.0-11.0); NEUTROPHIL # 7.3 10^3/ul (1.6-7.5); NEUTROPHILS % 77.6 % (39.0-77.0); PLATELET COUNT 266 10^3/UL (140-415); RED BLOOD COUNT 3.63 10^6/ul (4.20-5.40); WHITE BLOOD COUNT 9.4 10^3/ul (4.8-10.8)
--- NOTE | 2017-03-11 11:48 | PN ---
Date/Time of Note Date/Time of Note DATE: 03/11/17 TIME: 11:47 OB Subjective Subjective Subjective DOING WELL AFEBRILE CBC WITH NO CHANGES FROM PREOP FINDINGS. FEELS GOOD , WITH GAS PAIN. INCISION DRY , HEALING WELL. OB Objective HEENT: WNL Heart: Rhythm Normal Lungs: Clear, Equal Abdomen: WNL Extremities: Normal Reflexes: Normal TEA DOE MD Mar 11, 2017 11:48
[2017-03-11] MEDS ORDERED: OXYCODONE/ACETAMINOPHEN (5/325) TAB PO PRN (12:00)
[2017-03-11] MEDS ORDERED: BISACODYL (EC) 5 MG TAB PO ONE (12:00)
[2017-03-11] MEDS: ACETAMINOPHEN/CODEINE #3 TAB PO PRN ×2 (12:04→20:00)
[2017-03-11 15:26] VITALS: BP 111/65; PULSE 97; RESP 18
[2017-03-11] MEDS: KETOROLAC 30 MG INJ IV SCH ×2 (16:17→18:00)
[2017-03-11 20:00] VITALS: BP 113/59; PULSE 94; RESP 18
[2017-03-12] MEDS: ACETAMINOPHEN/CODEINE #3 TAB PO PRN (03:08)
[2017-03-12 03:49] VITALS: BP 114/71; PULSE 89; RESP 18
[2017-03-12] MEDS: KETOROLAC 30 MG INJ IV SCH ×2 (06:00)
[2017-03-12 08:00] VITALS: BP 117/71; RESP 20
[2017-03-12] MEDS: SENNA/DOCUSATE NA (8.6MG/50MG) TAB PO SCH ×2 (08:55→21:00)
[2017-03-12] MEDS: OXYCODONE/ACETAMINOPHEN (5/325) TAB PO PRN ×4 (08:56→22:43)
--- NOTE | 2017-03-12 09:02 | CONS ---
Date/Time of Note Date/Time of Note DATE: 03/12/17 TIME: 09:00 Consultation Date/Type/Reason Admit Date/Time Mar 10, 2017 at 08:45 Initial Consult Date 03/11/17 Type of Consultation: Anesthesiology Reason for Consultation Follow up 24 HR Interval Summary Free Text/Dictation Pt seen and examined is POD#1 s/p repeat C/S with BTL. Pt received spinal Duramorph injection or post op pain control. She is currently doing well with adequate pain control. No N/V/D/C/LOUISE/Numbness in extremities. Will continue to follow. Constitutional: improved, no complaints Exam/Review of Systems Vital Signs Vitals Vital Signs Date Time Temp Pulse Resp B/P Pulse Ox O2 Delivery O2 Flow Rate FiO2 03/12/17 03:49 98.1 89 18 114/71 Room Air 03/11/17 09:27 97 21 Intake and Output 03/11/17 03/11/17 03/12/17 15:00 23:00 07:00 Intake Total 940 ml Output Total 2200 ml 700 ml Balance -1260 ml -700 ml Results Result Diagram: 03/11/17 0817 03/10/17 0940 Medications Medications Current Medications Methylergonovine Maleate (Methergine) 0.2 mg Q6H PRN PO VAGINAL BLEEDING; Start 03/10/17 at 11:00 Acetaminophen/ Codeine Phosphate (Tylenol No.3) 1 tab Q4H PRN PO PAIN LEVEL 4-6 ; Start 03/10/17 at 11:00 Acetaminophen/ Codeine Phosphate (Tylenol No.3) 2 tab Q4H PRN PO PAIN LEVEL 7- 10 Last administered on 03/12/17 03:08; Admin Dose 2 TAB; Start 03/10/17 at 11: 00 Simethicone (Mylicon) 160 mg Q8H PRN PO DISTENSION/GAS/BLOATING Last administered on 03/12/17 03:08; Admin Dose 160 MG; Start 03/10/17 at 11:00 Senna/Docusate Sodium (Senokot-S) 1 tab BID PO Last administered on 03/12/17 08:55; Admin Dose 1 TAB; Start 03/10/17 at 21:00 Sodium Biphosphate/ Sodium Phosphate (Fleet Enema) 133 ml DAILY PRN ME CONSTIPATION; Start 03/10/17 at 11:00 Diphtheria/ Tetanus/Acell Pertussis (Adacel) 0.5 ml ONCE ONCE IM* ; Start at 09:00; Stop 03/13/17 at 09:01 Measles/Mumps/ Rubella Vaccine Live 0.5 ml 0.5 ml ONCE ONCE SC* ; Start at 09:00; Stop 03/13/17 at 09:01 Oxytocin/Lactated Ringer's 500 ml @ 0 mls/hr ONCE PRN IV For Hemorrhage Management; Start 03/10/17 at 11:00 Methylergonovine Maleate (Methergine) 0.2 mg ONCE PRN IM VAGINAL BLEEDING; Start 03/10/17 at 11:00 Carboprost Tromethamine (Hemabate) 250 mcg ONCE PRN IM VAGINAL BLEEDING; Start 03/10/17 at 11:00 Misoprostol (Cytotec) 1,000 mcg ONCE PRN ME VAGINAL BLEEDING; Start 03/10/17 at 11:00 Oxycodone/ Acetaminophen (Percocet (5/ 325)) 1 tab Q4H PRN PO PAIN; Start 03/11 at 12:00 Oxycodone/ Acetaminophen (Percocet (5/ 325)) 2 tab Q4H PRN PO PAIN Last administered on 03/12/17 08:56; Admin Dose 2 TAB; Start 03/11/17 at 12:00 Ketorolac Tromethamine (Toradol) 30 mg Q6 IV Last administered on 03/11/17 16: 17; Admin Dose 30 MG; Start 03/11/17 at 12:30; Stop 03/12/17 at 18:01 JOHN MCINTYRE Mar 12, 2017 09:01
--- NOTE | 2017-03-12 11:50 | PN ---
Date/Time of Note Date/Time of Note DATE: 03/12/17 TIME: 11:47 Assessment/Plan Lines/Catheters IV Catheter Type (from Nrsg): Peripheral IV Subjective 24 Hr Interval Summary Patient is feeling better today, she has been tolerating diet and she is afebrile, passing gas, incision is fairly dry. she is advised for ambulation.. She is advised to take a shower and remove the abdominal dressing. The abdominal dressing is dry. The laboratory testing is within normal limits. I anticipate her to discharge home tomorrow. Constitutional: BM, ambulates, flatus, improved, no complaints, urine output Feeding: advancing diet Pain Control: well controlled Detailed Summary Eyes: no complaints ENT: no complaints Respiratory: no complaints Cardiovascular: no complaints Gastrointestinal: no complaints Genitourinary: no complaints Musculoskeletal: no complaints Skin: no complaints Neurologic: no complaints Endocrine: no complaints Lymphatic: no complaints Psychological: nl mood/affect, no complaints Immunologic: no complaints Exam/Review of Systems Vital Signs Vitals Vital Signs Date Time Temp Pulse Resp B/P Pulse Ox O2 Delivery O2 Flow Rate FiO2 03/12/17 08:00 98.5 20 117/71 Room Air 03/12/17 03:49 89 03/11/17 09:27 97 21 Intake and Output 03/11/17 03/11/17 03/12/17 15:00 23:00 07:00 Intake Total 940 ml Output Total 2200 ml 700 ml Balance -1260 ml -700 ml Exam Constitutional: alert, oriented, well developed Psych: nl mood/affect, no complaints Head: atraumatic, normocephalic Eyes: EOMI, nl conjunctiva, nl lids, nl sclera ENMT: mucosa pink and moist, nl external ears & nose, nl lips & teeth, nl nasal mucosa & septum Neck: non-tender, supple Respiratory: clear to auscultation, normal air movement Cardiovascular: nl pulses, regular rate and rhythm Gastrointestinal: nl liver, spleen, non-tender, soft Musculoskeletal: nl extremities to inspection, nl gait and stance Extremities: normal pulses Neurological: [employer] [facility] II-XII intact, nl mental status, nl speech, nl strength Skin: nl turgor, rash or lesions Lymph: nl lymph nodes Results Result Diagram: 03/11/17 0817 03/10/17 0940 TEA DOE MD Mar 12, 2017 11:50
[2017-03-12 12:00] VITALS: BP 132/76; PULSE 81; RESP 17
[2017-03-12] MEDS ORDERED: BISACODYL (EC) 5 MG TAB PO ONE (12:30)
[2017-03-12 16:00] VITALS: BP 117/59; PULSE 84; RESP 19
[2017-03-12 20:15] VITALS: BP 112/69; PULSE 86; RESP 18
[2017-03-13 04:00] VITALS: BP_SYST 120; BP_SYST 125; BP_DIAS 64; BP_DIAS 84; PULSE 80; PULSE 86; RESP 18
[2017-03-13] MEDS: OXYCODONE/ACETAMINOPHEN (5/325) TAB PO PRN ×3 (05:41→16:21)
[2017-03-13 07:45] VITALS: BP 126/77; PULSE 74; RESP 18
[2017-03-13] MEDS ORDERED: MEASLES,MUMPS,RUBELLA VACCINE INJ SC* ONE (09:00)
[2017-03-13] MEDS ORDERED: DIPHTH/TET/ACEL PERTUSS (ADULT) 0.5 ML VIAL IM* ONE (09:00)
[2017-03-13] MEDS ORDERED: VITAMIN A & D 5 GM OINT PACKET TOP ONE (09:16)
[2017-03-13] MEDS: SENNA/DOCUSATE NA (8.6MG/50MG) TAB PO SCH ×2 (09:19→21:29)
--- NOTE | 2017-03-13 11:42 | PN ---
Date/Time of Note Date/Time of Note DATE: 03/13/17 TIME: 11:33 Assessment/Plan Lines/Catheters IV Catheter Type (from Nrsg): Peripheral IV Subjective 24 Hr Interval Summary Patient states that she is in excruciating pain and is not able to control the pain without injection Her incision looks good is healing well She has not been walking too much because of pain and she is passing gas and had bowel movement, voiding well, I will keep her one more night due to her pain level Constitutional: BM, ambulates, flatus, improved, no complaints, urine output Feeding: advancing diet Pain Control: severe Detailed Summary Eyes: no complaints ENT: no complaints Respiratory: no complaints Cardiovascular: no complaints Gastrointestinal: no complaints Genitourinary: no complaints Musculoskeletal: no complaints Skin: no complaints Neurologic: no complaints Endocrine: no complaints Lymphatic: no complaints Psychological: nl mood/affect, no complaints Immunologic: no complaints Exam/Review of Systems Vital Signs Vitals Vital Signs Date Time Temp Pulse Resp B/P Pulse Ox O2 Delivery O2 Flow Rate FiO2 03/13/17 07:45 98.6 74 18 126/77 Room Air 03/11/17 09:27 97 21 Exam Constitutional: alert, oriented, well developed Psych: nl mood/affect, no complaints Head: atraumatic, normocephalic Eyes: EOMI, nl conjunctiva, nl lids, nl sclera ENMT: mucosa pink and moist, nl external ears & nose, nl lips & teeth, nl nasal mucosa & septum Neck: non-tender, supple Respiratory: clear to auscultation, normal air movement Cardiovascular: nl pulses, regular rate and rhythm Gastrointestinal: nl liver, spleen, non-tender, soft Musculoskeletal: nl extremities to inspection, nl gait and stance Extremities: normal pulses Neurological: KENNEL KEEPER II-XII intact, nl mental status, nl speech, nl strength Skin: nl turgor, rash or lesions Lymph: nl lymph nodes Results Result Diagram: 03/11/17 0817 03/10/17 0940 TEA DEO MD Mar 13, 2017 11:41
[2017-03-13] MEDS: IBUPROFEN 800 MG TAB PO SCH ×2 (12:26→18:24)
[2017-03-13 16:00] VITALS: BP 113/79; PULSE 77; RESP 18
[2017-03-13 19:45] VITALS: BP 122/75; PULSE 82; RESP 19
[2017-03-14] MEDS: IBUPROFEN 800 MG TAB PO SCH ×4 (00:05→17:48)
[2017-03-14 03:30] VITALS: BP 122/64; PULSE 70; RESP 19
[2017-03-14 08:00] VITALS: BP 113/79; PULSE 77; RESP 20
[2017-03-14] MEDS: SENNA/DOCUSATE NA (8.6MG/50MG) TAB PO SCH (08:45)
[2017-03-14] MEDS: OXYCODONE/ACETAMINOPHEN (5/325) TAB PO PRN ×2 (08:46→17:49)
[2017-03-14] MEDS ORDERED: VITAMIN A & D 5 GM OINT PACKET TOP ONE (12:39)
--- NOTE | 2017-03-14 13:38 | PD.PPDC ---
[facility] Discharge Instruction Diagnosis Final Diagnosis: Term , previous ClS, repeat ClS Condition Patient Condition: Good Diet Diet: Resume Regular Diet Activity/Restrictions Activity: Normal Activity May Shower Restrictions: No Exercising No Lifting No Driving No Sexual Activity Nothing in the Vagina No [place] No Tampons, douche Wound/Drain Care Instructions Wound/Drain Care Instructions: Wash with soap and water Keep clean and dry Follow-up Follow-up with Physician: 2, Week/Weeks Return to clinic for [employer]ER Instructions: Fever greater than 101 Chills Worsening abdominal pain Excessive Vaginal Bleeding More than 2 pads per hour Unable to tolerate diet OB Instructions: Breast Tenderness Depression Blurried Vision Headache Surgical Instructions: Incisional Drainage Incisional Redness TEA DOE MD Mar 14, 2017 13:38
--- NOTE | 2017-03-14 13:46 | DS ---
Date/Time of Note Date/Time of Note DATE: 03/14/17 TIME: 13:42 Obstetrical Discharge Record Final Diagnosis Final Diagnosis: Term delivered Other Final Diagnosis PREVIOUS SECTION REPEAT SECTION Section Section: Repeat Condition on Discharge Physical Assessment Last Vitals: WNL Voiding: Yes Bowel Movement: Yes Breast: Soft, non-tender, Filling Fundus: Firm Episiotomy: INCISION HEALING GOOD Calf Tenderness: No Patient Condition: Good TEA DOE MD Mar 14, 2017 13:46
[2017-03-14 16:00] VITALS: BP 122/79; PULSE 82; RESP 20
== END 2017-03-14 18:30 | disposition home or self-care (01) | DRG 766 ==
LOC: L-D 08:45 → PP1 15:02
PROVIDERS: ADMIT Obstetrics & Gynecology; ATTEND Obstetrics & Gynecology
PROC: 10D00Z1 Extraction of Products of Conception, Low, Open Approach (ICD-10-PCS; principal; 2017-03-10 10:30)
DX: O34.211 Maternal care for low transverse scar from previous cesarean delivery (principal); E66.01 Morbid (severe) obesity due to excess calories; O99.214 Obesity complicating childbirth; Z68.38 Body mass index [BMI] 38.0-38.9, adult; Z3A.37 37 weeks gestation of pregnancy; Z37.0 Single live birth
CPT/HCPCS: 80053; 81001; 84560; 85025; 85610; 85730; 86592; 86850; 86900; 86901; 87340; 88302; 90715; 94760; 99464; J0690; J1170; J1885; J2274; J2370; J2405; J2590; J3010; J7120